=== PATIENT | female | born 1995 | race Caucasian/White ===

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

== ENCOUNTER 2020-08-09 20:44 | Emergency (ER) | payer MEDICAID, OTHER ==
[~2020-08-09] VITALS: Ht 165.1 cm; Wt 105.8 kg
[2020-08-09 20:44] VITALS: BP 136/74
== END 2020-08-10 00:05 | disposition home or self-care (01) ==
LOC: M ED 20:44
DX: F32.9 Major depressive disorder, single episode, unspecified (principal); R45.851 Suicidal ideations; F60.3 Borderline personality disorder; Z88.1 Allergy status to other antibiotic agents